=== PATIENT | female | born 1965 ===

== ENCOUNTER 2023-10-08 14:31 | Outpatient (CLI) | payer BC, SELFPAY ==
--- NOTE | ~2023-10-08 | MR_ITS ---
EXAMINATION: MR knee LT wo con DATE: 10/08/2023 15:12 INDICATION: Left knee pain TECHNIQUE: Magnetic resonance imaging (MRI) of the left knee was performed without intravenous contra st. Sequences included coronal PD-weighted FSE, coronal PD-weighted FS FSE, sagittal T2-weighted FSE , sagittal PD-weighted FS FSE and axial PD weighted fat saturated FSE. COMPARISON: None. FINDINGS: Medial compartment: Medial extrusion of the medial meniscal body with complex tear involving the body and posterior horn. There is extensive full/near full-thickness cartilage loss at the medial tibial plateau and anterior to central weightbearing medial femoral condyle with early remodeling of the articular cortices and subarticular edema-like signal change. Lateral compartment: Subtle horizontal tear of the body and posterior horn of the lateral meniscus. Additional smaller reg ions of full thickness cartilage loss and cortical remodeling with underlying subarticular edema-like signal change along the medial aspect of the medial tibial plateau along the shoulder the intercondy lar eminence and along the juxtaposed medial side of the anterior weightbearing lateral femoral condy le. Patellofemoral compartment: Full/near full-thickness chondral ulceration with underlying cortical irregularity and subarticular e estefanía-like signal change at the medial patellar facet and apical ridge as well as at the juxtaposed in ferior half of the medial trochlea. Ligaments and tendons: Anterior and posterior cruciate ligaments are normal. The medial collateral ligament and fibular danelle ateral ligament complex are normal. The extensor mechanism is normal. The visualized medial and later al hamstring tendons as well as the iliotibial band are normal. Fluid: Exceptionally large left knee joint effusion with prominent synovitis at the suprapatellar pouch and to lesser degree in the recess of the joint space. There is also mild synovitis associated with a lar ge Rosenberg's cyst. No loose osteochondral bodies identified. Osseous/other: No fracture or pathologic marrow replacing process. IMPRESSION: 1. Medial and lateral meniscal tears. 2. Tricompartmental osteoarthritis, severe in the medial compartment with prominent high-grade chondr omalacia in all 3 compartments. 3. Exceptionally large left knee joint effusion with likely reactive synovitis and large Rosenberg's cyst . Reviewed, dictated and finalized at location A. IMPRESSION: 1. Medial and lateral meniscal tears. 2. Tricompartmental osteoarthritis, severe in the medial compartment with promi nent high-grade chondromalacia in all 3 compartments. 3. Exceptionally large left knee joint effusion with likely reactive synovitis and large Rosenberg's cyst.
== END 2023-10-08 14:32 ==
PROVIDERS: PCP Nurse Practitioner Family; Visit Provider Nurse Practitioner Family
DX: S83.282A Other tear of lateral meniscus, current injury, left knee, initial encounter (principal); S83.242A Other tear of medial meniscus, current injury, left knee, initial encounter; M17.12 Unilateral primary osteoarthritis, left knee; M94.262 Chondromalacia, left knee; M25.462 Effusion, left knee; M71.22 Synovial cyst of popliteal space [Baker], left knee; X58.XXXA Exposure to other specified factors, initial encounter
CPT/HCPCS: 73721